=== PATIENT | female | born 1945 | race Caucasian/White ===

== ENCOUNTER 2016-10-05 05:56 | Inpatient (IN) ==
[2016-09-26 13:07] LABS: Basophils % 0.5 % (0.0-0.8); Eosinophils # 0.2 10*3/uL (0.0-0.87); Eosinophils % 2.9 % (0.00-10.9); Hematocrit 39.7 VOL% (35.7-47.0); Hemoglobin 13.6 GM/DL (12.0-16.0); Immature Granulocytes % 0.3 %; Immature Granulocytes Absolute 0.02 #; Lymphocytes # 1.6 10*3/uL (1.4-4.0); Mean Corpuscular HGB Conc 34.3 GM/DL (32-36); Mean Corpuscular Hemoglobin 31 PG (27-34); Mean Corpuscular Volume 90.6 FL (87-102); Mean Platelet Volume 9.4 FL (9.6-12.0); Monocytes # 0.4 10*3/uL (0.11-0.8); Monocytes % 6.2 % (1.7-12.7); Neutrophils % 64.1 % (38.7-73.9); Platelet Count 186 T/CUMM (130-400); Red Blood Count 4.38 MC/CUMM (3.8-5.5); White Blood Count 6.3 T/CUMM (4-12)
--- NOTE | 2016-09-26 13:14 | EKG Report ---
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
[2016-09-26 13:22] LABS: PT Patient Result 10.6 SECS; Partial Thromboplastin Time 27.6 SECS (0-40)
[2016-09-26 13:27] LABS: Apearance,Urine Slightly Hazy (Clear); Bilirubin,Urine Negative (Negative); Blood, Urine Small mg/dL (Negative); Glucose,Urine (UA) Negative (Negative); Ketones,Urine Negative (Negative); Mucus,Urine Occasional /LPF (Occasional); Nitrite,Urine Negative (Negative); Protein,Urine Negative; RBC,Urine 3 /HPF (0-4); Squamous Epithelial Cell,Urine Occasional /HPF (0-10); Urine Color Yellow (Yellow); Urine Urobilinogen < 2.0 EU/DL (0.2-1.0); WBC,Urine 6 /HPF (0-6)
--- NOTE | 2016-09-26 13:28 | XRay Report ---
XR chest 2V Indication: Preop respiratory evaluation. Chest 2 views: Comparison 05/15/2015. The heart size and mediastinal contour are normal. The lungs and pleural spaces are clear. Bones are unremarkable. Impression: Negative chest. PROCEDURE INTERPRETED AT [facility] DEPARTMENT OF RADIOLOGY Final Report Signed by: Jg Estevez M.D.
[2016-09-26 13:31] LABS: Alanine Aminotransferase 17 U/L (13-56); Albumin 3.5 G/DL (3.4-5.0); Alkaline Phosphatase 103 U/L (45-117); Aspartate Amino Transferase < 3 U/L (0-37); Bilirubin,Total < 0.39 MG/DL (0.2-1.0); Blood Urea Nitrogen 13 MG/DL (7-18); Calcium 9.5 MG/DL (8.5-10.1); Glucose 99 MG/DL (74-106); Osmolality,Calculated 282.1 MOS/KG (273-304); Potassium 4.3 MMOL/L (3.5-5.1); Sodium 142 MMOL/L (136-145); Total Protein 6.7 G/DL (6.4-8.3)
[2016-10-05] MEDS ORDERED: VANCOMYCIN INJ 1,000 MG in SODIUM CHLORIDE 0.9% 250 ML IV ONE ×2 (06:00→19:59)
--- NOTE | 2016-10-05 06:50 | History and Physical Update ---
History and Physical Update - History and Physical H&P was reviewed, the patient examined and there: are no changes in the patients condition since last H&P was completed.
[2016-10-05] MEDS ORDERED: DIAZEPAM 5 MG TABLET PO ONE (07:15)
[2016-10-05] MEDS ORDERED: FAMOTIDINE 20 MG TABLET PO ONE (07:15)
[2016-10-05] MEDS ORDERED: DIAZEPAM 5 MG TABLET ONE (07:23)
[2016-10-05] MEDS ORDERED: ceFAZolin 1,000 MG VIAL ONE (07:23)
[2016-10-05] MEDS ORDERED: SODIUM CHLORIDE 0.9% 100 ML IV ONE (07:23)
[2016-10-05] MEDS ORDERED: VANCOMYCIN 1,000 MG VIAL ONE (07:23)
[2016-10-05] MEDS ORDERED: FAMOTIDINE 20 MG TABLET ONE (07:23)
[2016-10-05] MEDS ORDERED: LACTATED RINGERS 1,000 ML IV SCH (07:30)
[2016-10-05] MEDS ORDERED: ROPIVACAINE 0.5% 30 ML VIAL ONE (08:52)
[2016-10-05] MEDS ORDERED: MIDAZOLAM 2 MG/2 ML VIAL ONE (08:53)
[2016-10-05] MEDS ORDERED: fentaNYL 100 MCG/2 ML VIAL ONE (08:53)
[2016-10-05] MEDS ORDERED: BACITRACIN OINT 0.9 GM PACK TOP ONE ×2 (10:57→11:52)
[2016-10-05] MEDS ORDERED: TRANEXAMIC ACID 1,000 MG/10 ML VIAL IV ONE (11:28)
[2016-10-05] MEDS ORDERED: clonazePAM 0.5 MG TABLET PO PRN (11:57)
[2016-10-05] MEDS ORDERED: NITROGLYCERIN SL 0.4 MG TABLET SL PRN (11:57)
[2016-10-05] MEDS ORDERED: DIAZEPAM 5 MG TABLET PO PRN (11:57)
[2016-10-05] MEDS ORDERED: traMADol 50 MG TABLET PO PRN (11:57)
[2016-10-05] MEDS ORDERED: ONDANSETRON 4 MG/2 ML VIAL IV PRN (11:59)
[2016-10-05] MEDS ORDERED: MAGNESIUM HYDROXIDE SUSP 30 ML UDCUP PO PRN (11:59)
[2016-10-05] MEDS ORDERED: diphenhydrAMINE CAP 25 MG CAPSULE PO PRN (11:59)
[2016-10-05] MEDS ORDERED: oxyCODONE IR 5 MG TABLET PO PRN ×2 (11:59)
[2016-10-05] MEDS ORDERED: MORPHINE 2 MG/1 ML SYRINGE IV PRN ×2 (11:59)
--- NOTE | 2016-10-05 12:11 | Operative Note ---
Date of procedure: 10/05/16 Procedure: DIAGNOSIS: Right shoulder osteoarthritis, primary PROCEDURE: Right total shoulder arthroplasty SURGEON: Raul ANESTHESIA: General and interscalene block PROCEDURE and FINDINGS: After adequate anesthesia was induced, the patient was placed in beachchair position and right upper extremity prepped and draped in usual sterile fashion. Deltopectoral approach was made. Skin, subcutaneous tissue was incised. The interval between her deltoid and pectoralis major was identified. Cephalic vein and deltoid were retracted laterally. The strap muscles and pectoralis major retracted medially. Subscapularis tenotomy was performed. The [employer] total shoulder system was used. The shoulder was easily dislocated. The canal was identified and sequentially reamed to 10 mm. A proximal humeral protector was placed. The glenoid was then addressed. Guidepin was placed and overreamed. The edges were rasped. The lugs were then prepared. The glenoid was cemented in place with Palacos cement. During the initial cementing, the logs and central pegs were bent. A second glenoid and cementing was utilized. The humerus was then broached with the 10 mm anatomic proximal body and a 10 mm humeral stem. 48 x 15 mm head was trialed. Patient had excellent range of motion with 50% posterior and inferior subluxation. The final components were press-fit. The subscapularis tenotomy was repaired with multiple #2 Tycron [id number] sutures. The deltopectoral interval was closed with 0 Vicryl [id number]-[id number] suture. Subcutaneous tissue was closed with buried, interrupted 3-0 Vicryl. [place] were used to close skin. Bacitracin and a sterile soft dressing was applied. She is placed in a swing. She is explained transferred recovery in stable condition. Surgeon / Physician: Iam Carter Jr. Results - Labs CBC & BMP: 09/26/16 13:00 09/26/16 13:00 Discharge Plan - Discharge Medications No Action HYDROcodone/ACETAMIN 10-325 [[place] 10-325] 1 tablet PO Q6HR PRN PRN Reason: Pain Tizanidine HCl [Zanaflex] 4 mg PO TID PRN PRN Reason: Muscle Spasm Meloxicam [Mobic] 15 mg PO DAILY PRN PRN Reason: Pain clonazePAM [Klonopin] 2 mg PO BID PRN PRN Reason: Anxiety Diazepam Tab [Valium Tab] 5 mg PO BID PRN PRN Reason: Anxiety Multivitamin [Multivitamins] 1 each PO DAILY Fluoxetine HCl [Prozac] 2 capsule PO DAILY Omeprazole Magnesium [Prilosec Otc] 20 mg PO BID Bacillus Coagulans [Probiotic] 1 each PO DAILY Tramadol HCl [Tramadol Tab] 50 mg PO Q6H PRN PRN Reason: Pain Sertraline [Zoloft] 50 mg PO DAILY Nitroglycerin 0.4 mg SL DIRECTED PRN PRN Reason: Chest Pain SUMAtriptan TAB [Imitrex Tab] 100 mg PO DIRECTED Cyclobenzaprine [Flexeril] 10 mg PO TID - Follow Up or Referral - Forms/Instructions
[2016-10-05] MEDS ORDERED: ACETAMINOPHEN 1,000 MG/100 ML VIAL IV ONE (12:22)
[2016-10-05] MEDS ORDERED: DESFLURANE 1 UNIT/15 MINUTE INH ONE (12:24)
--- NOTE | 2016-10-05 15:26 | Orthopedic Progress Note ---
Orthopedics - Subjective Interval history: right shoulder is comfortable. However, she is complaining of left eye pain and irritation. She has normal vision and motion. rue: dressing c/d/i. block still working. add gentamicin topical ointment for possible corneal abrasion. Exam - Constitutional Vitals: Period Temp Pulse Resp BP Sys/Ruggiero Pulse Ox Last 24 Hr 97.9 F-98.7 F 75-99 20-20 110-145/60-84 96-99 Results - Labs CBC & BMP: 09/26/16 13:00 09/26/16 13:00 Quality Measures - VTE Contraindication to Pharmacological VTE Prophylaxis: Clinical assessment deems Pt at low risk, no prophalaxis needed
--- NOTE | 2016-10-05 16:32 | XRay Report ---
Single view of the right shoulder. Indication: Postoperative. There has been a right total shoulder replacement. The hardware is in good position. No evidence of acute fracture or dislocation. Impression: Expected postoperative appearance. PROCEDURE INTERPRETED AT [facility] DEPARTMENT OF RADIOLOGY Final Report Signed by: Dr. Ana Florez
[2016-10-05] MEDS: ACETAMINOPHEN 500 MG TABLET PO SCH ×2 (17:49→22:22)
[2016-10-05] MEDS: KETOROLAC 30 MG/1 ML VIAL IV SCH ×2 (17:50→20:45)
[2016-10-05] MEDS: LACTATED RINGERS 1,000 ML IV SCH ×2 (18:41→22:27)
[2016-10-05] MEDS: GENTAMICIN 0.3% OPH OINT 3.5 GM TUBE LEFT EYE SCH ×2 (19:19→22:26)
[2016-10-05] MEDS: DOCUSATE SODIUM 100 MG CAPSULE PO SCH ×2 (20:45→20:46)
[2016-10-05] MEDS: PANTOPRAZOLE 40 MG TABLET PO SCH (20:45)
[2016-10-06] MEDS: KETOROLAC 30 MG/1 ML VIAL IV SCH ×2 (01:55→11:42)
[2016-10-06] MEDS: LACTATED RINGERS 1,000 ML IV SCH ×2 (01:55→10:32)
[2016-10-06] MEDS: GENTAMICIN 0.3% OPH OINT 3.5 GM TUBE LEFT EYE SCH ×6 (01:56→22:37)
[2016-10-06] MEDS: ACETAMINOPHEN 500 MG TABLET PO SCH ×2 (04:48→10:32)
[2016-10-06 05:05] LABS: Basophils % 0.4 % (0.0-0.8); Eosinophils # 0.2 10*3/uL (0.0-0.87); Eosinophils % 1.9 % (0.00-10.9); Hematocrit 30.9 VOL% (35.7-47.0); Hemoglobin 10.2 GM/DL (12.0-16.0); Immature Granulocytes % 0.2 %; Immature Granulocytes Absolute 0.02 #; Lymphocytes # 1.9 10*3/uL (1.4-4.0); Lymphocytes % 23.7 % (21.3-54.2); Mean Corpuscular Hemoglobin 30 PG (27-34); Mean Corpuscular Volume 91.7 FL (87-102); Mean Platelet Volume 9.8 FL (9.6-12.0); Neutrophils % 61.8 % (38.7-73.9); Platelet Count 165 T/CUMM (130-400); Red Blood Count 3.37 MC/CUMM (3.8-5.5); Red Cell Distribution Width 12.2 % (9.3-17.3); White Blood Count 8.1 T/CUMM (4-12)
[2016-10-06 05:38] LABS: Calcium 7.9 MG/DL (8.5-10.1); Potassium 3.3 MMOL/L (3.5-5.1)
[2016-10-06] MEDS ORDERED: FLUOXETINE HCL PO SCH (09:00)
--- NOTE | 2016-10-06 10:05 | Orthopedic Progress Note ---
Orthopedics - Subjective Interval history: comfortable right now. she had pain earlier when the block wore off. Her left eye is much better. dressing dry. right hand nv ok. plan home tomorrow. Exam - Constitutional Vitals: Period Temp Pulse Resp BP Sys/Ruggiero Pulse Ox Last 24 Hr 97.6 F-99.2 F 75-99 16-20 110-144/60-84 95-99 Results - Labs CBC & BMP: 10/06/16 04:04 10/06/16 04:04 Quality Measures - VTE Contraindication to Pharmacological VTE Prophylaxis: Clinical assessment deems Pt at low risk, no prophalaxis needed
[2016-10-06] MEDS: LACTOBACILLUS ACIDOPHILUS/BULGARICUS CAPLET PO SCH (10:34)
[2016-10-06] MEDS: DOCUSATE SODIUM 100 MG CAPSULE PO SCH ×2 (10:34→20:28)
[2016-10-06] MEDS: MULTIVITAMIN (CENTRUM) TABLET PO SCH (10:34)
[2016-10-06] MEDS: PANTOPRAZOLE 40 MG TABLET PO SCH ×2 (10:35→20:28)
[2016-10-06] MEDS: SERTRALINE 50 MG TABLET PO SCH (10:35)
[2016-10-06] MEDS: CELECOXIB 200 MG CAPSULE PO SCH (18:38)
[2016-10-06] MEDS: POTASSIUM CHLORIDE 20 MEQ TABLET PO SCH (20:28)
[2016-10-07] MEDS: GENTAMICIN 0.3% OPH OINT 3.5 GM TUBE LEFT EYE SCH ×3 (02:03→10:25)
[2016-10-07 05:10] LABS: Basophils % 0.3 % (0.0-0.8); Eosinophils # 0.2 10*3/uL (0.0-0.87); Eosinophils % 1.6 % (0.00-10.9); Hematocrit 29.1 VOL% (35.7-47.0); Hemoglobin 9.7 GM/DL (12.0-16.0); Immature Granulocytes % 0.6 %; Immature Granulocytes Absolute 0.06 #; Lymphocytes # 2.3 10*3/uL (1.4-4.0); Lymphocytes % 23.3 % (21.3-54.2); Mean Corpuscular HGB Conc 33.3 GM/DL (32-36); Mean Corpuscular Hemoglobin 30 PG (27-34); Mean Corpuscular Volume 91.2 FL (87-102); Monocytes # 1.1 10*3/uL (0.11-0.8); Monocytes % 11.5 % (1.7-12.7); Neutrophils # 6.1 10*3/uL (1.4-7.4); Neutrophils % 62.7 % (38.7-73.9); Platelet Count 155 T/CUMM (130-400); Red Blood Count 3.19 MC/CUMM (3.8-5.5); White Blood Count 9.8 T/CUMM (4-12)
[2016-10-07 06:04] LABS: Lymphocytes 28 % (20-55); Platelet Estimate Normal; Segmented Neutrophils 60 % (50-85); Total Cells Counted 100
[2016-10-07 06:20] LABS: Calcium 8.2 MG/DL (8.5-10.1); Osmolality,Calculated 284.1 MOS/KG (273-304); Potassium 3.1 MMOL/L (3.5-5.1)
--- NOTE | 2016-10-07 08:18 | Discharge Summary ---
Hospital Course - Hospital Course Hospital Course: Nayana Ng was admitted after undergoing a right total shoulder replacement. She received perioperative DVT and CT prophylaxis. She received physical therapy and occupational therapy. She was discharged home postoperative day #2. Her operation was complicated with a left eye corneal abrasion with improved with gentamicin ointment. She also received potassium for hypokalemia. Dressings clean, dry and intact. Right upper extremities neurovascularly intact. Specialty Discharge - Follow Up or Referrals Follow up with: Iam Carter Jr., MD [Physician] - Discharge Plan - Discharge Data Disposition: Disch To Home/Self Care Discharge Diet: advance to your usual diet Hygiene: july shower Driving: not until seen by doctor - Discharge Medications New Gentamicin 0.3% Oph Oint [Garamycin 0.3 % Oph Oint] 1 applic LEFT EYE Q4HR 1 Days Continue Tizanidine HCl [Zanaflex] 4 mg PO TID PRN PRN Reason: Muscle Spasm Meloxicam [Mobic] 15 mg PO DAILY PRN PRN Reason: Pain clonazePAM [Klonopin] 2 mg PO BID PRN PRN Reason: Anxiety Diazepam Tab [Valium Tab] 5 mg PO BID PRN PRN Reason: Anxiety Multivitamin [Multivitamins] 1 each PO DAILY Omeprazole Magnesium [Prilosec Otc] 20 mg PO BID Bacillus Coagulans [Probiotic] 1 each PO DAILY Tramadol HCl [Tramadol Tab] 50 mg PO Q6H PRN PRN Reason: Pain Nitroglycerin 0.4 mg SL Q5M PRN PRN Reason: Chest Pain SUMAtriptan TAB [Imitrex Tab] 100 mg PO Q6H PRN PRN Reason: Migraine Headache Discontinued HYDROcodone/ACETAMIN 10-325 [[place] 10-325] 1 tablet PO Q6HR PRN PRN Reason: Pain - Follow Up or Referral Follow Up: Iam Carter Jr., MD [Physician] - - Forms/Instructions Additional Discharge Instructions: Daily dry dressing changes to right shoulder. Follow-up appointment 7-10 days. Anterior shoulder precautions. Keep hand and elbow in front of body at all times. Wear sling out of house and at night. Pendulums 3 times daily. Prescription for [place] 7.5 and potassium chloride was written. Follow-up with Dr. Caldwell in the next 1-2 weeks for follow-up on potassium. Exam - Constitutional Vitals: Period Temp Pulse Resp BP Sys/Ruggiero Pulse Ox Last 24 Hr 96.9 F-99.4 F 66-106 16-20 99-160/54-74 93-99 Discharge Results Procedures and tests throughout hospitalization: Pending Orders 10/08/16 04:00 Comp Blood Count Auto Diff IN AM Labs on day of discharge: Labs from last 24 hours 10/07/16 10/07/16 04:33 04:33 WBC 9.8 RBC 3.19 L Hgb 9.7 L Hct 29.1 L MCV 91.2 MCH 30 MCHC 33.3 RDW 12.0 Plt Count 155 MPV 10.0 Neut % (Auto) 62.7 Lymph % (Auto) 23.3 Saline % (Auto) 11.5 Eos % (Auto) 1.6 Baso % (Auto) 0.3 Neut # (Auto) 6.1 Lymph # (Auto) 2.3 Saline # (Auto) 1.1 H Eos # (Auto) 0.2 Baso # (Auto) 0.0 Total Counted 100 Immature Gran % 0.6 Nucleated RBC % 0.0 Immature Gran # 0.06 Segmented Neutrophils 60 Lymphocytes 28 Monocytes 12 Nucleated RBCs # 0.00 Platelet Estimate Normal Sodium 142 Potassium 3.1 L Chloride 104 Carbon Dioxide 31 Anion Gap 10.1 BUN 15 Creatinine 0.70 GFR Calculation 93 BUN/Creatinine Ratio 21.00 H Glucose 110 H Calculated Osmolality 284.1 Calcium 8.2 L DS: Provider Date of admission: 10/05/16 05:56 Primary care physician: Kenji Caldwell MD Attending physician on admission: Iam Carter Jr., Consults: 10/05/16 11:59 Consult to Occupational Therapy [CONS] Routine Reason for Occupational Therapy: Evaluate and Treat Consult Comment: pendulums Consult to Physical Therapy [CONS] Routine Reason for Physical Therapy: Evaluate and Treat Gait Training Start Therapy: Today Discharging clinician: Iam Carter Jr., Expected date of discharge: 10/07/16
[2016-10-07] MEDS: SERTRALINE 50 MG TABLET PO SCH (10:17)
[2016-10-07] MEDS: LACTOBACILLUS ACIDOPHILUS/BULGARICUS CAPLET PO SCH (10:17)
[2016-10-07] MEDS: POTASSIUM CHLORIDE 20 MEQ TABLET PO SCH (10:17)
[2016-10-07] MEDS: PANTOPRAZOLE 40 MG TABLET PO SCH (10:18)
[2016-10-07] MEDS: MULTIVITAMIN (CENTRUM) TABLET PO SCH (10:19)
[2016-10-07] MEDS: CELECOXIB 200 MG CAPSULE PO SCH (10:19)
[2016-10-07] MEDS: DOCUSATE SODIUM 100 MG CAPSULE PO SCH (10:20)
[2016-10-07 11:38] VITALS: BP 106/60
--- NOTE | 2016-10-07 19:19 | Pathology Report from [facility] ---
[facility] [place] ACCESSION # : [id number] PATIENT NAME : Nayana Ng ORDERING DR : DON NATARAJAN MD CLINICAL HX: Right shoulder osteoarthritis POST-OP DX: Same SPECIMEN INFO: Right humeral head GROSS DESCRIPTION: Received in formalin labeled NAYANA NG is a humeral head measuring 4.5 x 4.7 x 1.2 cm with an area of subchondral eburnation seen measuring 3.2 x 2.4 cm. The cut surface is smooth with no softening appreciated. Camper Assembler section is submitted in one cassette following decalcification. DIAGNOSIS FOR NAYANA NG: Right humeral head with changes of degenerative joint disease/ osteoarthritis. COLLECTED DATE: 10/05/2016 [facility] [place] REPORT DATE: 10/07/2016 ELECTRONICALLY SIGNED BY: Leandro Marin M.D. 10/07/2016 - 11:22:07 RUBÉN
== END 2016-10-07 12:00 | disposition home or self-care (01) | DRG 483 ==
LOC: N.SDSINP 05:56 → N.3E 13:15
PROVIDERS: ADMIT Orthopaedic Surgery; ATTEND Orthopaedic Surgery

== ENCOUNTER 2021-12-20 05:00 | Observation (INO) ==
[2021-12-16 16:12] LABS: Hyaline Casts,Urine 1 /LPF (0-3); Mucus,Urine Occasional /LPF (Occasional); RBC,Urine 8 /HPF (0-4); Squamous Epithelial Cell,Urine Occasional /HPF (0-10)
[2021-12-16 16:15] LABS: Bilirubin,Urine Negative (Negative); Blood, Urine Small mg/dL (Negative); Glucose,Urine (UA) Negative (Negative); Ketones,Urine Trace mg/dL (Negative); Nitrite,Urine Negative (Negative); Protein,Urine Negative (Negative); Urine Appearance Clear (Clear); Urine Color Yellow (Yellow); Urine Specific Gravity 1.025 (1.001-1.035); Urine Urobilinogen 0.2 eU/dL (<2.0)
[2021-12-20] MEDS ORDERED: ceFAZolin 2,000 MG/50 ML DUPLEX IV ONE (06:00)
[2021-12-20] MEDS ORDERED: fentaNYL 100 MCG/2 ML VIAL ONE (06:26)
[2021-12-20] MEDS ORDERED: DEXMEDETOMIDINE 200 MCG/2 ML VIAL ONE (06:26)
[2021-12-20] MEDS ORDERED: ROCURONIUM 50 MG/5 ML VIAL IV ONE ×2 (06:26→08:39)
[2021-12-20] MEDS ORDERED: propofoL 200 MG/20 ML VIAL IV ONE (06:26)
[2021-12-20] MEDS ORDERED: SEVOFLURANE 1 UNIT/15 MINUTE INH ONE ×8 (06:26→08:50)
[2021-12-20] MEDS ORDERED: LIDOCAINE 2% 5 ML VIAL ONE (06:26)
[2021-12-20] MEDS ORDERED: ONDANSETRON 4 MG/2 ML VIAL ONE ×2 (06:26→08:39)
[2021-12-20] MEDS ORDERED: VANCOMYCIN 1,000 MG VIAL ONE (06:29)
[2021-12-20] MEDS ORDERED: LIDOCAINE 1% 5 ML VIAL ONE (06:33)
[2021-12-20] MEDS ORDERED: ROPIVACAINE 0.5% 30 ML VIAL ONE (06:33)
[2021-12-20] MEDS ORDERED: DEXAMETHASONE 4 MG/1 ML VIAL ONE ×3 (06:33→08:38)
[2021-12-20] MEDS: LACTATED RINGERS 1,000 ML IV SCH (06:35)
[2021-12-20] MEDS ORDERED: BACITRACIN OINT 0.9 GM PACK TOP ONE (06:44)
[2021-12-20 06:52] LABS: INR 0.9; PT Patient Result 9.6 SECS (10.1-12.1); Partial Thromboplastin Time 25.4 SECS (23.7-32.9)
[2021-12-20] MEDS ORDERED: ACETAMINOPHEN INJ 1,000 MG/100 ML VIAL IV ONE (07:05)
[2021-12-20] MEDS ORDERED: ePHEDrine 50 MG/ML VIAL ONE (07:23)
[2021-12-20] MEDS ORDERED: HYDROmorphone 1 MG/1 ML SYRINGE IV PRN (07:26)
[2021-12-20] MEDS ORDERED: MAGNESIUM HYDROXIDE SUSP 30 ML UDCUP PO PRN (07:26)
[2021-12-20] MEDS ORDERED: diphenhydrAMINE CAP 25 MG CAPSULE PO PRN (07:26)
[2021-12-20] MEDS ORDERED: KETOROLAC 15 MG/1 ML VIAL IV PRN (07:26)
[2021-12-20] MEDS ORDERED: ONDANSETRON 4 MG/2 ML VIAL IV PRN (07:26)
[2021-12-20] MEDS ORDERED: LACTATED RINGERS 1,000 ML IV SCH (07:30)
[2021-12-20] MEDS ORDERED: LACTATED RINGERS 1,000 ML IV ONE (08:14)
[2021-12-20] MEDS ORDERED: GLYCOPYRROLATE 0.4 MG/2 ML VIAL ONE (08:40)
[2021-12-20] MEDS ORDERED: PHENYLEPHRINE 1 MG/10 ML SYRINGE IV ONE ×2 (08:40→08:49)
[2021-12-20] MEDS ORDERED: NEOSTIGMINE 10 MG/10 ML VIAL ONE (08:42)
[2021-12-20] MEDS ORDERED: MYCOPHENOLATE MOFETIL 200 MG/ML PO SCH ×2 (09:00→21:30)
[2021-12-20] MEDS: predniSONE 10 MG TABLET PO SCH (12:26)
[2021-12-20] MEDS: ceFAZolin 2,000 MG/50 ML DUPLEX IV SCH ×2 (14:11→21:18)
[2021-12-20] MEDS ORDERED: hydrALAZINE 20 MG/1 ML VIAL IV PRN (14:42)
[2021-12-20] MEDS ORDERED: OMEPRAZOLE ODT 20 MG TABLET PO ONE (16:00)
[2021-12-20] MEDS ORDERED: PANTOPRAZOLE 40 MG TABLET PO SCH (21:00)
[2021-12-20] MEDS ORDERED: TEMAZEPAM 15 MG CAPSULE PO SCH (21:00)
[2021-12-20] MEDS ORDERED: ceFAZolin 2,000 MG/50 ML DUPLEX IV SCH (23:30)
[2021-12-21 05:07] LABS: Basophils % 0.1 % (0.0-0.8); Hematocrit 35.2 VOL% (35.7-47.0); Hemoglobin 11.1 GM/DL (12.0-16.0); Immature Granulocytes % 0.6 %; Immature Granulocytes Absolute 0.08 #; Lymphocytes % 8.2 % (21.3-54.2); Mean Corpuscular HGB Conc 31.5 GM/DL (32-36); Mean Corpuscular Volume 98.3 FL (87-102); Mean Platelet Volume 9.3 FL (9.6-12.0); Monocytes # 1.1 10*3/uL (0.11-0.8); Monocytes % 9.1 % (1.7-12.7); Platelet Count 180 T/CUMM (130-400); Red Blood Count 3.58 MC/CUMM (3.8-5.5); Red Cell Distribution Width 12.5 % (9.3-17.3); White Blood Count 12.4 T/CUMM (4-12)
[2021-12-21 05:31] LABS: Calcium 8.4 MG/DL (8.5-10.1); Osmolality,Calculated 288.1 MOS/KG (273-304); Potassium 3.6 MMOL/L (3.5-5.1)
[2021-12-21] MEDS: HYDROmorphone 1 MG/1 ML SYRINGE IV PRN ×2 (05:58→09:25)
[2021-12-21] MEDS ORDERED: OMEPRAZOLE ODT 20 MG TABLET PO SCH (07:00)
[2021-12-21] MEDS: predniSONE 10 MG TABLET PO SCH (08:46)
[2021-12-21] MEDS: LACTATED RINGERS 1,000 ML IV SCH (09:26)
[2021-12-21 11:34] VITALS: BP 173/48
== END 2021-12-21 13:40 | disposition home or self-care (01) ==
LOC: INTOOBSV 05:21 → N.SDSINP 05:21 → N.3E 09:59
PROVIDERS: ADMIT Orthopaedic Surgery; ATTEND Orthopaedic Surgery

== ENCOUNTER 2022-04-02 14:23 | Observation (INO) ==
[2022-04-02] MEDS ORDERED: SODIUM CHLORIDE 0.9% 1,000 ML IV STA (15:35)
[2022-04-02 15:44] LABS: Basophils % 0.2 % (0.0-0.8); Eosinophils % 0.3 % (0.00-10.9); Hematocrit 42.4 VOL% (35.7-47.0); Immature Granulocytes % 1.1 %; Immature Granulocytes Absolute 0.11 #; Lymphocytes # 1.5 10*3/uL (1.4-4.0); Lymphocytes % 14.6 % (21.3-54.2); Mean Corpuscular Volume 91.8 FL (87-102); Monocytes # 0.9 10*3/uL (0.11-0.8); Monocytes % 8.5 % (1.7-12.7); Neutrophils % 75.3 % (38.7-73.9); Platelet Count 216 T/CUMM (130-400); Red Blood Count 4.62 MC/CUMM (3.8-5.5); Red Cell Distribution Width 12.6 % (9.3-17.3)
[2022-04-02 16:04] LABS: Albumin 2.8 G/DL (3.4-5.0); Bilirubin,Total 0.7 MG/DL (0.20-1.00); Calcium 8.6 MG/DL (8.5-10.1); Osmolality,Calculated 283.1 MOS/KG (273-304); Potassium 3.5 MMOL/L (3.5-5.1)
[2022-04-02] MEDS ORDERED: ONDANSETRON 4 MG/2 ML VIAL ONE (16:34)
[2022-04-02] MEDS ORDERED: ONDANSETRON 4 MG/2 ML VIAL IV STA (16:39)
[2022-04-02 16:47] LABS: Urine Appearance Slightly Hazy (Clear); Urine Color Amber (Yellow); Urine pH 5.5 (4.5-8.0)
[2022-04-02 16:48] LABS: Bilirubin,Urine Moderate mg/dL (Negative); Blood, Urine Moderate mg/dL (Negative); Glucose,Urine (UA) Negative (Negative); Ketones,Urine 40 mg/dL (Negative); Nitrite,Urine Negative (Negative); Protein,Urine 100 mg/dL (Negative); Urine Specific Gravity 1.025 (1.001-1.035); Urine Urobilinogen 0.2 eU/dL (<2.0)
[2022-04-02 16:50] LABS: Bacteria,Urine Occasional /HPF (Few); Mucus,Urine Moderate /LPF (Occasional); Squamous Epithelial Cell,Urine Occasional /HPF (0-10)
[2022-04-02] MEDS ORDERED: TEMAZEPAM 15 MG CAPSULE PO PRN (18:29)
[2022-04-02] MEDS ORDERED: ONDANSETRON 4 MG/2 ML VIAL IV PRN (18:33)
[2022-04-02] MEDS ORDERED: hydrALAZINE 20 MG/1 ML VIAL IV PRN (18:33)
[2022-04-02] MEDS: LACTATED RINGERS 1,000 ML IV SCH (20:10)
[2022-04-02] MEDS: CEFEPIME 1,000 MG in SODIUM CHLORIDE 0.9% 100 ML IV SCH (21:01)
[2022-04-03] MEDS: AZITHROMYCIN INJ 500 MG in SODIUM CHLORIDE 0.9% 250 ML IV SCH ×2 (00:34→22:10)
[2022-04-03] MEDS: CEFEPIME 1,000 MG in SODIUM CHLORIDE 0.9% 100 ML IV SCH ×4 (02:16→21:16)
[2022-04-03 05:21] LABS: Basophils % 0.3 % (0.0-0.8); Eosinophils # 0.1 10*3/uL (0.0-0.87); Eosinophils % 1.2 % (0.00-10.9); Hematocrit 34.5 VOL% (35.7-47.0); Hemoglobin 11.6 GM/DL (12.0-16.0); Immature Granulocytes Absolute 0.08 #; Lymphocytes # 1.7 10*3/uL (1.4-4.0); Lymphocytes % 21.2 % (21.3-54.2); Mean Corpuscular HGB Conc 33.6 GM/DL (32-36); Mean Corpuscular Volume 91.5 FL (87-102); Mean Platelet Volume 9.3 FL (9.6-12.0); Monocytes # 0.9 10*3/uL (0.11-0.8); Monocytes % 12.1 % (1.7-12.7); Neutrophils % 64.2 % (38.7-73.9); Platelet Count 188 T/CUMM (130-400); Red Blood Count 3.77 MC/CUMM (3.8-5.5); Red Cell Distribution Width 12.3 % (9.3-17.3); White Blood Count 7.8 T/CUMM (4-12)
[2022-04-03 05:41] LABS: Calcium 8.3 MG/DL (8.5-10.1); Osmolality,Calculated 286.7 MOS/KG (273-304); Potassium 3.3 MMOL/L (3.5-5.1)
[2022-04-03] MEDS: PANTOPRAZOLE 40 MG TABLET PO SCH (08:24)
[2022-04-03] MEDS: MYCOPHENOLATE MOFETIL 250 MG CAPSULE PO SCH ×3 (08:24→22:06)
[2022-04-03] MEDS: ONDANSETRON 4 MG/2 ML VIAL IV SCH ×2 (14:10→22:15)
[2022-04-03] MEDS: LACTATED RINGERS 1,000 ML IV SCH ×2 (14:20→17:44)
[2022-04-04] MEDS: CEFEPIME 1,000 MG in SODIUM CHLORIDE 0.9% 100 ML IV SCH ×2 (03:43→08:40)
[2022-04-04] MEDS: LACTATED RINGERS 1,000 ML IV SCH (03:43)
[2022-04-04] MEDS: ONDANSETRON 4 MG/2 ML VIAL IV SCH (05:10)
[2022-04-04] MEDS: PANTOPRAZOLE 40 MG TABLET PO SCH (08:38)
[2022-04-04] MEDS: MYCOPHENOLATE MOFETIL 250 MG CAPSULE PO SCH (08:45)
[2022-04-04 13:01] VITALS: BP 167/82
== END 2022-04-04 13:43 | disposition home or self-care (01) ==
LOC: N.EDINP 14:23 → N.ED 14:23 → SUATTDRO 18:33 → N.EDINP 22:38 → N.2W 23:02
PROVIDERS: ADMIT Family Medicine; ATTEND Internal Medicine